=== PATIENT | male | born 1990 | race African-American/Black ===

== ENCOUNTER 2019-01-13 21:53 | Emergency (ER) | payer BC, MEDICAID ==
[~2019-01-13] VITALS: Ht 167.6 cm; Wt 82.0 kg
[2019-01-13 22:45] VITALS: BP 138/65
[2019-01-14] MEDS ORDERED: DEXAMETHASONE 10 MG/ML VIAL PO ONE (01:15)
== END 2019-01-14 01:52 | disposition home or self-care (01) ==
LOC: ER 21:53
DX: J02.9 Acute pharyngitis, unspecified (principal)
CPT/HCPCS: 99282; J1100